=== PATIENT | female | born 1990 | race Caucasian/White ===

== ENCOUNTER 2020-08-11 17:43 | Emergency (ER) | payer SELFPAY ==
[~2020-08-11] VITALS: Ht 152.4 cm; Wt 44.1 kg
[2020-08-11 17:48] VITALS: BP 146/95; Ht 152.4 cm; Wt 44.1 kg
[2020-08-11] MEDS ORDERED: ZOFRAN ODT4 MG/UDTAB PO (18:22)
== END 2020-08-11 19:06 | disposition home or self-care (01) ==
LOC: D.ER 17:43
DX: K04.7 Periapical abscess without sinus (principal); K08.89 Other specified disorders of teeth and supporting structures; Z72.0 Tobacco use